=== PATIENT | male | born 1985 | race Caucasian/White ===

== ENCOUNTER 2024-06-18 14:44 | Outpatient (CLI) | payer BC, SELFPAY | END 2024-06-18 14:45 | disposition home or self-care (01) | LOC: LKVREF 14:45 | PROVIDERS: PCP Emergency Medicine; Visit Provider Emergency Medicine | DX: F32.A Depression, unspecified (principal); Z13.29 Encounter for screening for other suspected endocrine disorder | CPT/HCPCS: 84443 ==

== ENCOUNTER 2024-08-27 09:09 | Outpatient (CLI) | payer BC, SELFPAY | END 2024-08-27 09:10 | disposition home or self-care (01) | LOC: NFLDREF 08-31 15:30 | PROVIDERS: PCP Emergency Medicine; Referring Provider Emergency Medicine; Visit Provider Emergency Medicine | DX: R03.0 Elevated blood-pressure reading, without diagnosis of hypertension (principal); Z13.220 Encounter for screening for lipoid disorders; Z12.5 Encounter for screening for malignant neoplasm of prostate | CPT/HCPCS: 80053; 80061; G0103 ==